=== PATIENT | female | born 1980 | race Two or more races ===

== ENCOUNTER 2017-08-13 23:44 | Emergency (ER) | payer OTHER ==
[2017-08-14 01:03] VITALS: BP 113/74
--- NOTE | 2017-08-14 08:33 | US ---
EXAM DATE: 08/13/17 PATIENT'S AGE: 37 Patient: ROVERTO CALDERA Facility: [place], [place] Site . Site : 1980 Study: US OB Pelvis [id number]/2018 12:55:29 AM Ordering Physician: Doctor Wetzel Final Report: INDICATION: Pelvic pain and bleeding TECHNIQUE: Ultrasound OB pelvis transvaginal. Real time edwards scale imaging of the pelvis was performed. COMPARISON: None FINDINGS: LMP: 07/08/2017 Sonographic imaging demonstrates no evidence of an intrauterine . The endometrium is thickened at 11 millimeters but no evidence of fluid or debris in the endometrial canal. The left ovary is normal. The right ovary is grossly normal. Adjacent and contiguous with the right ovary is a questionable 3.2 centimeter x 2.8 centimeter masslike lesion. Echogenic debris identified in the caudal sac. Findings highly worrisome for ectopic . IMPRESSION: No evidence of an intrauterine . No fluid or debris in the endometrial canal. Questionable 3.8 centimeter x 2.8 centimeter masslike lesion adjacent and contiguous with the right ovary. Echogenic debris identified in the caudal sac. Findings highly worrisome for ectopic and blood products in the cul-de-sac. Correlate with beta HCG levels. Dictated by Dillan Pope MD @ 08/14/2017 1:06:02 AM Dictated by: Dillan Pope MD @ 08/14/2017 01:06:13 ----- ADDENDUM ----- CONFIRMATION OF REPORT RECEIVED ON 08/14/2017 AT 1:[address] MCKAY: Dictated by Dillan Pope MD @ Aug 14 2017 1:09AM (Electronic Signature) Report Signed by Proxy. POWER
--- NOTE | 2017-08-14 11:42 | CONS ---
DATE OF CONSULTATION: DATE OF : 1980 PRIMARY CARE PHYSICIAN: None PCP HISTORY OF PRESENT ILLNESS: This is a 37-year-old patient, she is para 1-0-0-1. She is status post section done in the [facility]. She presented to the emergency room, was complaining of pelvic pain, especially on the right side, spotting, and minimum bleeding. I have seen this patient in the emergency room and she had a positive test with quantitative level of HCG of 69. Because of the patient history, there is a strong possibility of tubal . Abdominal examination is mild guarding in the lower part of the abdomen, but there is no rebound tenderness. Her vital sign was stable. There was minimum vaginal bleeding evidenced by inspecting the patient's pad. She had vaginal probe ultrasound, which confirmed that there is a thickening of the endometrium. However, there is no gestational sac and no pole is seen. The patient's both ovaries are visualized and there is a right adnexal mass measuring 3 x 5 cm consistent with the strong possibility of tubal . The patient's repeated HCG level is 68. Because of the HCG level, pain, and the ultrasound finding, the patient is highly suspicious for either leaking or rupture of very early right tubal . Her vital sign was stable and hematocrit is stable. The patient is not in any distress. I discussed the option of treatment with the patient. My plan is to send her home tonight and she is coming in the next few hours to the office and I am planning to treat her with methotrexate and we will monitor her HCG level. KEVIN / RICK /[id number]
== END 2017-08-14 01:00 | disposition home or self-care (01) ==
LOC: MW.ED 23:44
DX: Z53.21 Procedure and treatment not carried out due to patient leaving prior to being seen by health care provider (principal)
CPT/HCPCS: 36415; 76801; 76801-26; 84702; 85025; 99284-25